=== PATIENT | female | born 1935 | race Hispanic/Latino ===

== ENCOUNTER 2016-12-21 10:15 | Emergency (ER) | payer MEDICARE, OTHER ==
[~2016-12-21] VITALS: Ht 154.9 cm; Wt 73.0 kg
[~2016-12-21 10:15] MED LIST: ACIPHEX20 MG OR; AMOXICILLIN500 MG OR; AMOXICILLIN500 MG PO; ASPIRIN81 MG PO; BACTRIM DS1 TAB PO; BRIMONIDINE0.15 % OU; CELEBREX200 MG OR; CIPROFLOXACN500 MG PO; CITALOPRAM20 MG PO; CLARITIN10 M1 OR; CLARITIN10 M1 PO; CYCLOBENZAPRINE10 MG OR; DIOVAN HCT160 MG/25 OR; DIOVAN80 MG PO; DOXYCYCL HYC100 MG PO; ELAVIL50 MG OR; FLEXERIL PO; GABAPENTIN300 MG OR; HUMULIN 70/30 SC; LANTUS100 MG/ML SC; LEVOTHROID50 MCG OR; LEVOTHYROXIN50 MCG PO; LORTAB5 PO; LYRICA75 MG OR; MECLIZINE25 MG PO; METFORMIN500 M1 OR; METFORMIN500 MG OR; METFORMIN500 MG PO; Metformin OR; NAPROSYN250 MG PO; NEXIUM40 M1 PO; NITROFURANTOIN100 MG PO; NOVOLIN 70/30 SC; NYSTATIN100000 M3 EX; PERCOCET 5/325M1 TAB PO; PLAVIX75 MG OR; PLAVIX75 MG PO; PREVACID30 M1 OR; PRILOSEC20 MG PO; PRINZIDE1 TA1 OR; PROMETHAZINE50 MG OR; ROBAXIN-750750 MG PO; SIMVASTATIN20 MG PO; TAM75CAP OR; TRAMADOL HCL50 MG PO; ULTRAM50 M1 PO; ZOFRAN4 M1 OR; ZOFRAN4 M1 PO
[2016-12-21] MEDS ORDERED: OMEPRAZOLE20 MG PO (10:37)
[2016-12-21] MEDS ORDERED: VISTARIL50 MG PO (10:38)
[2016-12-21 11:26] LABS: HEMATOCRIT 32.3 % (37.0-47.0); HEMOGLOBIN 11.1 g/dl (12.0-16.0); IMMATURE GRANULOCYTES 0.2 % (0.0-1.0); MEAN CELL VOLUME 87.5 fL CALC (80.0-100.0); MEAN CORPUSCULAR HGB 30.1 pG CALC (26.0-32.0); MEAN CORPUSCULAR HGB CONC 34.4 g/L CALC (32.0-36.0); NEUT# 3.81 thou/uL (2.00-7.15); RED BLOOD COUNT 3.69 mill/uL (4.20-5.60); RED CELL DISTRI WIDTH 12.3 % (11.5-15.5)
[2016-12-21 12:08] LABS: ALBUMIN 3.8 g/dL (3.2-5.0); ALKALINE PHOSPHATASE 90 u/l (38-126); ANION GAP 12 (6-22 (CALC)); BILIRUBIN, TOTAL 0.9 mg/dL (0.0-1.4); BUN 12 mg/dL (8-23); BUN/CREATININE RATIO 13 (12-20 (CALC)); CALCIUM 9.2 mg/dL (8.4-10.2); CARBON DIOXIDE 27 mmol/l (22-30); CHLORIDE 104 mmol/l (95-108); CREATININE 0.9 mg/dL (0.5-1.0); GFR 60 ML/MIN (>=60 (CALC)); GFR FOR AFR.AMER. > 60 ML/MIN (>=60 (CALC)); GLUCOSE 113 mg/dL (82-115); SGOT/AST 23 u/l (9-36); SGPT/ALT 27 u/l (11-66); SODIUM 139 mmol/l (137-146)
[2016-12-21 12:58] VITALS: BP 140/64
== END 2016-12-21 13:04 | disposition home or self-care (01) ==
LOC: ED 10:15
PROVIDERS: Emergency Medicine
DX: S20.211A Contusion of right front wall of thorax, initial encounter (principal); S40.011A Contusion of right shoulder, initial encounter; W07.XXXA Fall from chair, initial encounter; Y92.009 Unspecified place in unspecified non-institutional (private) residence as the place of occurrence of the external cause

== ENCOUNTER 2017-10-25 09:20 | Emergency (ER) | payer MEDICARE, MEDICAID ==
[~2017-10-25] VITALS: Ht 154.9 cm; Wt 80.0 kg
[~2017-10-25 09:20] MED LIST changes: +OMEPRAZOLE20 MG PO; +VISTARIL50 MG PO
[2017-10-25 10:12] LABS: HEMATOCRIT 27.4 % (37.0-47.0); HEMOGLOBIN 9.4 g/dl (12.0-16.0); IMMATURE GRANULOCYTES 0.4 % (0.0-1.0); MEAN CELL VOLUME 90.7 fL CALC (80.0-100.0); MEAN CORPUSCULAR HGB 31.1 pG CALC (26.0-32.0); MEAN CORPUSCULAR HGB CONC 34.3 g/L CALC (32.0-36.0); NEUT# 7.9 thou/uL (2.00-7.15); RED BLOOD COUNT 3.02 mill/uL (4.20-5.60); RED CELL DISTRI WIDTH 12.2 % (11.5-15.5)
[2017-10-25 10:35] LABS: CREATININE 1.6 mg/dL (0.5-1.0); POTASSIUM 4.2 mmol/l (3.5-5.1)
[2017-10-25 10:45] VITALS: BP 108/66
== END 2017-10-25 10:45 | disposition short-term general hospital (02) ==
LOC: ED 09:20
PROVIDERS: Family Medicine
DX: R57.0 Cardiogenic shock (principal); I95.9 Hypotension, unspecified; I44.7 Left bundle-branch block, unspecified; E11.9 Type 2 diabetes mellitus without complications; R07.9 Chest pain, unspecified